=== PATIENT | female | born 1935 | race African-American/Black ===

== ENCOUNTER 2018-09-19 09:23 | Outpatient (CLI) | payer MEDICARE, OTHER | END 2018-09-19 09:24 | disposition home or self-care (01) | PROVIDERS: ATTEND Nurse Practitioner Family | DX: I10 Essential (primary) hypertension (principal); E78.5 Hyperlipidemia, unspecified; D64.9 Anemia, unspecified; Z91.81 History of falling ==

== ENCOUNTER 2018-10-03 10:32 | Outpatient (CLI) | payer MEDICARE, MEDICAID ==
--- NOTE | 2018-10-03 12:10 | ULT ---
RENAL ULTRASOUND: History: Renal insufficiency. FINDINGS: Real-time imaging of the right and left kidneys were performed. The right kidney measures 8.1, the le ft kidney 9 cm in size. The cortex of the kidneys appears to be of mild increased echogenicity but th e thickness is well preserved. There are no signs of cysts, mass or obstruction. The bladder is incom pletely distended at the time of this exam. IMPRESSION: Suggestion of some mild increased echogenicity to cortex of both kidneys suggesting some underlying m edial renal parenchymal disease. POS: [facility]
== END 2018-10-03 10:33 | disposition home or self-care (01) ==
LOC: BICULT 10:32
PROVIDERS: ATTEND Internal Medicine Nephrology
DX: N18.3 Chronic kidney disease, stage 3 (moderate) (principal)
CPT/HCPCS: 76770

== ENCOUNTER 2023-07-31 12:53 | Inpatient (IN) | payer MEDICARE, MEDICAID ==
[~2023-07-31 12:53] MED LIST: Iopamidol-370 76% 500 ML MDV (1 ML CHARGE) ONE
[2023-07-31 13:40] LABS: #Basophils 0.1 thou/uL (0.0-0.2); #Monocytes 0.9 thou/uL (0.11-0.59); #Neutrophils 10.7 thou/uL (1.40-6.50); %Basophils 0.3 % (0.0-1.0); %Eosinophils 0.2 % (0.0-10.0); %Lymphocytes 18.4 % (21.0-51.0); %Neutrophils 74.6 % (42.0-75.0); Hematocrit 36.3 % (36.0-47.0); Hemoglobin 11.7 g/dL (12.0-16.0); Mean Corpuscular HGB CONC 32.2 g/dL (32.0-36.0); Mean Corpuscular Volume 89.9 fl (78.0-98.0); Mean Platelet Volume 10.6 fL (7.4-10.4); Platelet Count 380 10x3/uL (130-400); RBC Distribution Width 15.3 % (11.5-14.5); Red Blood Cell (RBC) Count 4.04 mill/uL (4.20-5.40); White Blood Cell (WBC) Count 14.4 10x3/uL (4.8-10.8)
[2023-07-31] MEDS ORDERED: Sodium Chloride 0.9% 100 ML ONE (13:40)
[2023-07-31] MEDS ORDERED: cefTRIAXone (ROCEPHIN) 1 GM VIAL ONE (13:40)
[2023-07-31] MEDS ORDERED: Azithromycin 500 MG VIAL ONE (13:40)
[2023-07-31] MEDS ORDERED: methylPREDNISolone Sod Succ/PF 125 MG/2 ML VIAL ONE (13:45)
[2023-07-31 13:55] LABS: Prothrombin Time 13.9 sec (12.0-14.7)
[2023-07-31 13:57] LABS: PTT 26.2 sec (22.9-36.1)
[2023-07-31] MEDS ORDERED: Ipratropium/Albuterol 3 ML NEB ONE (14:00)
[2023-07-31 14:05] LABS: ALT (SGPT) Less than 7 U/L (8-55); AST (SGOT) 20 U/L (5-34); Albumin 3.3 g/dL (3.4-4.8); Alkaline Phosphatase 59 U/L (40-110); Anion Gap 17 mmol/L (10-20); BUN (Urea Nitrogen) 14 mg/dL (9.8-20.1); Bilirubin, Total 1.1 mg/dL (0.2-1.2); Calc. Creatinine Clearance 0 mL/min (70-130); Calcium 9.2 mg/dL (7.8-10.44); Carbon Dioxide 22 mmol/L (23-31); Chloride 102 mmol/L (98-107); Estimated GFR 75; Globulin 4.8 g/dL (2.4-3.5); Glucose 78 mg/dL (83-110); Magnesium 2.1 mg/dL (1.6-2.6); Potassium 3.2 mmol/L (3.5-5.1); Protein, Total 8.1 g/dL (5.8-8.1); Sodium 138 mmol/L (136-145)
[2023-07-31 14:06] LABS: D-Dimer Test 4.41 *mcg/mL (0.27-0.43)
[2023-07-31 14:07] LABS: Troponin I Less than 0.010 ng/mL (< 0.028)
[2023-07-31] MEDS ORDERED: Potassium Bicarbonate/Cit Ac 25 MEQ TAB ONE (15:32)
[2023-07-31 16:40] LABS: SARS-CoV-2 NAA Rapid Test Not Detected (NotDetected)
[2023-07-31] MEDS ORDERED: Acetaminophen 325 MG TAB PO PRN (17:10)
[2023-07-31] MEDS ORDERED: Acetaminophen 650 MG Suppository PR PRN (17:10)
[2023-07-31] MEDS ORDERED: Sodium Chloride 0.9% 1,000 ML IV SCH (17:15)
[2023-07-31] MEDS ORDERED: hydrALAZINE 20 MG/ML VIAL SLOW IVP PRN (17:46)
[2023-07-31] MEDS ORDERED: Famotidine/PF 20 mg/2ml Vial ONE (20:43)
[2023-07-31] MEDS: Famotidine/PF 20 mg/2ml Vial SLOW IVP SCH (20:55)
[2023-08-01 06:38] LABS: Bilirubin Moderate (Negative); Blood, Urine Large (Negative); Glucose, Urine (Dipstick) Negative (Negative); Ketone, Urine 15 mg/dL (Negative); Leukocyte Moderate (Negative); Nitrite Positive (Negative); Protein, Urine (Dipstick) Trace mg/dL (Neg-Trace); Specific Gravity, Urine 1.015 (1.005-1.030); pH, Urine 6.5 (5.0-9.0)
[2023-08-01 06:39] LABS: Clarity Turbid (Clear)
[2023-08-01 07:24] LABS: CAUTI Indications for Culture Fever or rigors; RBC/HPF 21-50 HPF (0-3); WBC/HPF 21-50 HPF (0-3)
[2023-08-01 07:25] LABS: Bacteria/HPF 4+ HPF (None Seen); Transitional Epithelial 0-3 HPF (None Seen)
[2023-08-01 07:28] LABS: Urine Culture Reflex Yes Yes
[2023-08-01] MEDS ORDERED: Famotidine/PF 20 mg/2ml Vial ONE (08:48)
[2023-08-01] MEDS: Sodium Chloride 0.9% 1,000 ML IV SCH ×2 (08:57→21:43)
[2023-08-01] MEDS: Famotidine/PF 20 mg/2ml Vial SLOW IVP SCH (08:58)
[2023-08-01] MEDS: Lisinopril 10 MG TAB PO SCH (09:57)
[2023-08-01] MEDS ORDERED: E-Z-HD 98% W/W 340GM BOT (x-ray ONLY) ONE (11:15)
[2023-08-01 13:44] LABS: #Monocytes 1.1 thou/uL (0.11-0.59); #Neutrophils 10.8 thou/uL (1.40-6.50); %Basophils 0.1 % (0.0-1.0); %Lymphocytes 15.1 % (21.0-51.0); %Monocytes 7.9 % (0.0-10.0); %Neutrophils 76.3 % (42.0-75.0); Hematocrit 33.9 % (36.0-47.0); Hemoglobin 10.7 g/dL (12.0-16.0); Mean Corpuscular HGB CONC 31.6 g/dL (32.0-36.0); Mean Corpuscular Hemoglobin 28.8 pg (27.0-31.0); Mean Corpuscular Volume 91.1 fl (78.0-98.0); Mean Platelet Volume 10.7 fL (7.4-10.4); Platelet Count 315 10x3/uL (130-400); RBC Distribution Width 15.7 % (11.5-14.5); Red Blood Cell (RBC) Count 3.72 mill/uL (4.20-5.40); White Blood Cell (WBC) Count 14.1 10x3/uL (4.8-10.8)
[2023-08-01] MEDS: cefTRIAXone\\ROCEPHIN 2 GM in Sodium Chloride 0.9% 100 ML IVPB SCH (14:08)
[2023-08-01 14:14] LABS: ALT (SGPT) Less than 7 U/L (8-55); AST (SGOT) 18 U/L (5-34); Albumin 2.7 g/dL (3.4-4.8); Alkaline Phosphatase 48 U/L (40-110); Anion Gap 18 mmol/L (10-20); BUN (Urea Nitrogen) 13 mg/dL (9.8-20.1); Bilirubin, Total 0.7 mg/dL (0.2-1.2); Calc. Creatinine Clearance 41 mL/min (70-130); Calcium 8.8 mg/dL (7.8-10.44); Carbon Dioxide 19 mmol/L (23-31); Chloride 110 mmol/L (98-107); Estimated GFR 84; Globulin 4.3 g/dL (2.4-3.5); Glucose 105 mg/dL (83-110); Potassium 3.7 mmol/L (3.5-5.1); Sodium 143 mmol/L (136-145)
[2023-08-01] MEDS: Azithromycin 500 MG in Sodium Chloride 0.9% 250 ML 250 ML IVPB SCH (14:54)
[2023-08-02] MEDS ORDERED: Famotidine/PF 20 mg/2ml Vial SLOW IVP SCH (09:00)
[2023-08-02] MEDS: Lisinopril 10 MG TAB PO SCH (12:11)
[2023-08-02 12:21] LABS: #Neutrophils 7.8 thou/uL (1.40-6.50); %Basophils 0.3 % (0.0-1.0); %Eosinophils 0.3 % (0.0-10.0); %Monocytes 8.8 % (0.0-10.0); Hematocrit 33.8 % (36.0-47.0); Hemoglobin 11.2 g/dL (12.0-16.0); Mean Corpuscular HGB CONC 33.1 g/dL (32.0-36.0); Mean Corpuscular Hemoglobin 28.9 pg (27.0-31.0); Mean Platelet Volume 11.1 fL (7.4-10.4); Platelet Count 269 10x3/uL (130-400); RBC Distribution Width 15.5 % (11.5-14.5); Red Blood Cell (RBC) Count 3.88 mill/uL (4.20-5.40); White Blood Cell (WBC) Count 11.8 10x3/uL (4.8-10.8)
[2023-08-02 12:24] LABS: Mean Corpuscular Volume 87.1 fl (78.0-98.0)
[2023-08-02 12:28] LABS: Anion Gap 13 mmol/L (10-20); BUN (Urea Nitrogen) 11 mg/dL (9.8-20.1); Calc. Creatinine Clearance 44 mL/min (70-130); Calcium 8.7 mg/dL (7.8-10.44); Carbon Dioxide 22 mmol/L (23-31); Chloride 107 mmol/L (98-107); Estimated GFR 86; Glucose 82 mg/dL (83-110); Potassium 3.4 mmol/L (3.5-5.1); Sodium 139 mmol/L (136-145)
[2023-08-02] MEDS ORDERED: Potassium Chloride 20 MEQ TAB PO SCH (13:00)
[2023-08-02] MEDS: cefTRIAXone\\ROCEPHIN 2 GM in Sodium Chloride 0.9% 100 ML IVPB SCH (13:10)
[2023-08-02] MEDS ORDERED: Amlodipine 5 MG TAB PO SCH (13:15)
[2023-08-02] MEDS: Azithromycin 500 MG in Sodium Chloride 0.9% 250 ML 250 ML IVPB SCH (15:38)
[2023-08-02] MEDS ORDERED: Potassium Bicarbonate/Cit Ac 20 MEQ TAB PO SCH (17:00)
[2023-08-02] MEDS: Sodium Chloride 0.9% 1,000 ML IV SCH (17:33)
[2023-08-02 20:52] VITALS: BMI 15.2
[2023-08-03] MEDS: Lisinopril 10 MG TAB PO SCH (07:45)
[2023-08-03] MEDS ORDERED: Amlodipine 5 MG TAB PO SCH (09:00)
[2023-08-03] MEDS ORDERED: Famotidine 20 MG TAB PO SCH (09:00)
[2023-08-03 09:44] LABS: #Basophils 0.1 thou/uL (0.0-0.2); #Eosinphils 0.1 thou/uL (0.0-0.7); #Neutrophils 6.9 thou/uL (1.40-6.50); %Basophils 0.5 % (0.0-1.0); %Eosinophils 0.6 % (0.0-10.0); %Lymphocytes 23.8 % (21.0-51.0); %Monocytes 9.2 % (0.0-10.0); %Neutrophils 65.3 % (42.0-75.0); Hematocrit 34.1 % (36.0-47.0); Hemoglobin 11.2 g/dL (12.0-16.0); Mean Corpuscular HGB CONC 32.8 g/dL (32.0-36.0); Mean Corpuscular Hemoglobin 29.5 pg (27.0-31.0); Mean Corpuscular Volume 89.7 fl (78.0-98.0); Mean Platelet Volume 10.5 fL (7.4-10.4); Platelet Count 300 10x3/uL (130-400); RBC Distribution Width 15.6 % (11.5-14.5); White Blood Cell (WBC) Count 10.5 10x3/uL (4.8-10.8)
[2023-08-03] MEDS ORDERED: Amoxicillin/Potassium Clav 875 MG TAB PO SCH (10:00)
[2023-08-03 10:08] LABS: Anion Gap 14 mmol/L (10-20); BUN (Urea Nitrogen) 9 mg/dL (9.8-20.1); Calc. Creatinine Clearance 44 mL/min (70-130); Calcium 8.8 mg/dL (7.8-10.44); Carbon Dioxide 26 mmol/L (23-31); Chloride 102 mmol/L (98-107); Estimated GFR 86; Glucose 95 mg/dL (83-110); Potassium 3.8 mmol/L (3.5-5.1); Sodium 138 mmol/L (136-145)
[2023-08-03 12:07] VITALS: BP 123/63
[2023-08-03 12:12] VITALS: TEMP 97.6
== END 2023-08-03 16:09 | disposition home or self-care (01) | DRG 871 ==
LOC: ERS 12:53 → ERHOLD 16:49 → 2NO 16:49
PROVIDERS: ADMIT Family Medicine; ATTEND Hospitalist
DX: A41.9 Sepsis, unspecified organism (principal); J18.9 Pneumonia, unspecified organism; J96.01 Acute respiratory failure with hypoxia; I69.951 Hemiplegia and hemiparesis following unspecified cerebrovascular disease affecting right dominant side; N39.0 Urinary tract infection, site not specified; J44.0 Chronic obstructive pulmonary disease with (acute) lower respiratory infection; E87.6 Hypokalemia; I73.9 Peripheral vascular disease, unspecified; Z79.899 Other long term (current) drug therapy; I10 Essential (primary) hypertension; E78.00 Pure hypercholesterolemia, unspecified; F03.90 Unspecified dementia, unspecified severity, without behavioral disturbance, psychotic disturbance, mood disturbance, and anxiety; M19.90 Unspecified osteoarthritis, unspecified site; Z98.890 Other specified postprocedural states; F32.A Depression, unspecified; Z87.891 Personal history of nicotine dependence; I25.10 Atherosclerotic heart disease of native coronary artery without angina pectoris; Z86.711 Personal history of pulmonary embolism; Z11.52 Encounter for screening for COVID-19; Z79.01 Long term (current) use of anticoagulants
CPT/HCPCS: 36415; 36416; 71045; 71275; 74230; 80048; 80053; 81001; 83605; 83735; 83880; 84145; 84484; 85025; 85379; 85610; 85730; 87040; 87086; 87149; 93005; 94640; 94760; 97139; J0456; J0696; J2930; J3490; J7050; J7620; Q9967; S0028

== ENCOUNTER 2023-08-14 12:59 | Inpatient (IN) | payer MEDICARE, MEDICAID ==
[2023-08-14 14:22] LABS: #Basophils 0.1 thou/uL (0.0-0.2); #Eosinphils 0.1 thou/uL (0.0-0.7); #Monocytes 0.6 thou/uL (0.11-0.59); #Neutrophils 4.4 thou/uL (1.40-6.50); %Eosinophils 0.8 % (0.0-10.0); %Monocytes 7.5 % (0.0-10.0); %Neutrophils 57.4 % (42.0-75.0); Hematocrit 38.6 % (36.0-47.0); Hemoglobin 12.1 g/dL (12.0-16.0); Mean Corpuscular HGB CONC 31.3 g/dL (32.0-36.0); Mean Corpuscular Hemoglobin 29.1 pg (27.0-31.0); Mean Corpuscular Volume 92.8 fl (78.0-98.0); Mean Platelet Volume 10.5 fL (7.4-10.4); Platelet Count 261 10x3/uL (130-400); RBC Distribution Width 16.4 % (11.5-14.5); Red Blood Cell (RBC) Count 4.16 mill/uL (4.20-5.40); White Blood Cell (WBC) Count 7.7 10x3/uL (4.8-10.8)
[2023-08-14 14:43] LABS: ALT (SGPT) 10 U/L (8-55); AST (SGOT) 27 U/L (5-34); Albumin 3.3 g/dL (3.4-4.8); Alkaline Phosphatase 58 U/L (40-110); Anion Gap 14 mmol/L (10-20); BUN (Urea Nitrogen) 14 mg/dL (9.8-20.1); Bilirubin, Total 0.7 mg/dL (0.2-1.2); Calc. Creatinine Clearance 0 mL/min (70-130); Calcium 9.3 mg/dL (7.8-10.44); Carbon Dioxide 24 mmol/L (23-31); Chloride 106 mmol/L (98-107); Estimated GFR 76; Globulin 4.7 g/dL (2.4-3.5); Glucose 75 mg/dL (83-110); Sodium 140 mmol/L (136-145)
[2023-08-14 14:45] LABS: Troponin I 0.018 ng/mL (< 0.028)
[2023-08-14 16:45] LABS: Bacteria/HPF None Seen HPF (None Seen); Bilirubin Negative (Negative); Blood, Urine 3+ (Negative); CAUTI Indications for Culture Alt mental st,lethar; Clarity Extra Turbid (Clear); Glucose, Urine (Dipstick) Normal (Negative); Ketone, Urine Negative (Negative); Leukocyte 500 Leu/uL (Negative); Nitrite Negative (Negative); Protein, Urine (Dipstick) 30 mg/dL (Neg-Trace); RBC/HPF Greater than 50 HPF (0-3); Specific Gravity, Urine 1.012 (1.002-1.036); WBC/HPF Greater than 50 HPF (0-3)
[2023-08-14 16:47] LABS: Urine Culture Reflex Yes Yes
[2023-08-14 17:37] LABS: SARS-CoV-2 NAA Rapid Test Not Detected (NotDetected)
[2023-08-14] MEDS ORDERED: Sodium Chloride 0.9% 100 ML ONE (18:21)
[2023-08-14] MEDS ORDERED: cefTRIAXone (ROCEPHIN) 2 GM VIAL ONE (18:21)
[2023-08-14] MEDS ORDERED: Azithromycin 500 MG VIAL ONE (20:09)
[2023-08-14] MEDS ORDERED: Amlodipine 5 MG TAB PO SCH (22:30)
[2023-08-14] MEDS ORDERED: Acetaminophen 325 MG TAB PO PRN (22:38)
[2023-08-14] MEDS ORDERED: Ondansetron ODT 4 MG TAB PO PRN (22:38)
[2023-08-15 05:46] LABS: #Basophils 0.1 thou/uL (0.0-0.2); #Eosinphils 0.1 thou/uL (0.0-0.7); #Neutrophils 4.3 thou/uL (1.40-6.50); %Monocytes 12.1 % (0.0-10.0); %Neutrophils 54.4 % (42.0-75.0); BUN (Urea Nitrogen) 12 mg/dL (9.8-20.1); Calc. Creatinine Clearance 0 mL/min (70-130); Calcium 8.7 mg/dL (7.8-10.44); Carbon Dioxide 21 mmol/L (23-31); Chloride 111 mmol/L (98-107); Estimated GFR 83; Glucose 66 mg/dL (83-110); Hematocrit 33.3 % (36.0-47.0); Hemoglobin 10.6 g/dL (12.0-16.0); Mean Corpuscular HGB CONC 31.8 g/dL (32.0-36.0); Mean Corpuscular Hemoglobin 28.3 pg (27.0-31.0); Mean Platelet Volume 10.7 fL (7.4-10.4); Platelet Count 253 10x3/uL (130-400); RBC Distribution Width 16.3 % (11.5-14.5); Red Blood Cell (RBC) Count 3.75 mill/uL (4.20-5.40); Sodium 142 mmol/L (136-145); White Blood Cell (WBC) Count 7.9 10x3/uL (4.8-10.8)
[2023-08-15 05:48] LABS: Mean Corpuscular Volume 88.8 fl (78.0-98.0)
[2023-08-15 07:07] LABS: Anion Gap 14 mmol/L (10-20)
[2023-08-15] MEDS: Lisinopril 10 MG TAB PO SCH (08:20)
[2023-08-15] MEDS ORDERED: Amoxicillin/Potassium Clav 875 MG TAB ONE (08:32)
[2023-08-15] MEDS ORDERED: cefTRIAXone (ROCEPHIN) 1 GM VIAL ONE (08:33)
[2023-08-15] MEDS ORDERED: Famotidine 20 MG TAB ONE (08:33)
[2023-08-15] MEDS: Amoxicillin/Potassium Clav 875 MG TAB PO SCH ×2 (08:49→20:51)
[2023-08-15] MEDS ORDERED: cefTRIAXone\\ROCEPHIN 1 GM in Sodium Chloride 0.9% 100 ML IVPB SCH (09:00)
[2023-08-15] MEDS ORDERED: Famotidine 20 MG TAB PO SCH (09:00)
[2023-08-15] MEDS ORDERED: LevoFLOXacin 750 mg/D5W 750 MG in Premix 1 BAG IVPB SCH (10:00)
[2023-08-15] MEDS ORDERED: LevoFLOXacin 750 mg/D5W 150 ml Premix Bag ONE (10:04)
[2023-08-15] MEDS ORDERED: Atorvastatin Calcium 10 MG TAB PO SCH (21:00)
[2023-08-15] MEDS ORDERED: traZODone HCl 50 MG TAB PO SCH (21:00)
[2023-08-16 07:19] LABS: #Basophils 0.1 thou/uL (0.0-0.2); #Eosinphils 0.1 thou/uL (0.0-0.7); #Monocytes 0.6 thou/uL (0.11-0.59); #Neutrophils 4.3 thou/uL (1.40-6.50); %Basophils 0.8 % (0.0-1.0); %Eosinophils 0.9 % (0.0-10.0); %Lymphocytes 22.7 % (21.0-51.0); %Monocytes 9.7 % (0.0-10.0); %Neutrophils 65.4 % (42.0-75.0); Hematocrit 31.1 % (36.0-47.0); Hemoglobin 10.2 g/dL (12.0-16.0); Mean Corpuscular HGB CONC 32.8 g/dL (32.0-36.0); Mean Corpuscular Hemoglobin 28.6 pg (27.0-31.0); Mean Corpuscular Volume 87.1 fl (78.0-98.0); Mean Platelet Volume 10.7 fL (7.4-10.4); Platelet Count 258 10x3/uL (130-400); RBC Distribution Width 15.9 % (11.5-14.5); Red Blood Cell (RBC) Count 3.57 mill/uL (4.20-5.40); White Blood Cell (WBC) Count 6.6 10x3/uL (4.8-10.8)
[2023-08-16 07:52] LABS: Anion Gap 11 mmol/L (10-20); BUN (Urea Nitrogen) 14 mg/dL (9.8-20.1); Calc. Creatinine Clearance 32 mL/min (70-130); Carbon Dioxide 25 mmol/L (23-31); Chloride 108 mmol/L (98-107); Estimated GFR 70; Glucose 83 mg/dL (83-110); Potassium 3.9 mmol/L (3.5-5.1); Sodium 140 mmol/L (136-145)
[2023-08-16] MEDS: Amoxicillin/Potassium Clav 875 MG TAB PO SCH (08:55)
[2023-08-16] MEDS: Lisinopril 10 MG TAB PO SCH (08:56)
[2023-08-16] MEDS ORDERED: Famotidine 20 MG TAB PO SCH (09:00)
[2023-08-16 12:15] VITALS: BP 121/74; TEMP 97.6
[2023-08-17] MEDS ORDERED: LevoFLOXacin 750 mg/D5W 750 MG in Premix 1 BAG IVPB SCH (10:00)
== END 2023-08-16 13:05 | disposition home health service (06) | DRG 189 ==
LOC: ERS 12:59 → ERHOLD 20:41 → T4-B 22:58
PROVIDERS: ADMIT Student in an Organized Health Care Education/Training Program; ATTEND Hospitalist
DX: J96.01 Acute respiratory failure with hypoxia (principal); I26.99 Other pulmonary embolism without acute cor pulmonale; I69.353 Hemiplegia and hemiparesis following cerebral infarction affecting right non-dominant side; N39.0 Urinary tract infection, site not specified; F03.C0 Unspecified dementia, severe, without behavioral disturbance, psychotic disturbance, mood disturbance, and anxiety; J44.9 Chronic obstructive pulmonary disease, unspecified; I25.10 Atherosclerotic heart disease of native coronary artery without angina pectoris; I10 Essential (primary) hypertension; B96.20 Unspecified Escherichia coli [E. coli] as the cause of diseases classified elsewhere; E78.00 Pure hypercholesterolemia, unspecified; Z79.899 Other long term (current) drug therapy; Z79.2 Long term (current) use of antibiotics; Z79.01 Long term (current) use of anticoagulants; Z98.891 History of uterine scar from previous surgery; Z11.52 Encounter for screening for COVID-19; Z87.891 Personal history of nicotine dependence
CPT/HCPCS: 36415; 36416; 71045; 71275; 80048; 80053; 81001; 83605; 83880; 84145; 84484; 85025; 87040; 87086; 94760; J0456; J0696; J1956; J3490

== ENCOUNTER 2023-09-07 22:44 | Inpatient (IN) | payer MEDICARE, MEDICAID ==
[2023-09-08 00:35] LABS: ALT (SGPT) 10 U/L (8-55); AST (SGOT) 28 U/L (5-34); Albumin 2.2 g/dL (3.4-4.8); Alkaline Phosphatase 45 U/L (40-110); Anion Gap 11 mmol/L (10-20); BUN (Urea Nitrogen) 26 mg/dL (9.8-20.1); Bilirubin, Total 0.4 mg/dL (0.2-1.2); Calc. Creatinine Clearance 0 mL/min (70-130); Calcium 8.2 mg/dL (7.8-10.44); Carbon Dioxide 25 mmol/L (23-31); Chloride 109 mmol/L (98-107); Estimated GFR 65; Globulin 3.4 g/dL (2.4-3.5); Glucose 92 mg/dL (83-110); Potassium 3.9 mmol/L (3.5-5.1); Protein, Total 5.6 g/dL (5.8-8.1); Sodium 141 mmol/L (136-145)
[2023-09-08 00:38] LABS: Troponin I Less than 0.010 ng/mL (< 0.028)
[2023-09-08 00:55] LABS: #Neutrophils 5.9 thou/uL (1.40-6.50); %Basophils 0.3 % (0.0-1.0); %Eosinophils 0.4 % (0.0-10.0); %Lymphocytes 30.4 % (21.0-51.0); %Monocytes 10.1 % (0.0-10.0); Hematocrit 31.8 % (36.0-47.0); Hemoglobin 10.3 g/dL (12.0-16.0); Mean Corpuscular HGB CONC 32.4 g/dL (32.0-36.0); Mean Corpuscular Hemoglobin 28.1 pg (27.0-31.0); Mean Corpuscular Volume 86.9 fl (78.0-98.0); Mean Platelet Volume 10.5 fL (7.4-10.4); Platelet Count 172 10x3/uL (130-400); RBC Distribution Width 16.7 % (11.5-14.5); Red Blood Cell (RBC) Count 3.66 mill/uL (4.20-5.40); White Blood Cell (WBC) Count 10.1 10x3/uL (4.8-10.8)
[2023-09-08] MEDS ORDERED: Sodium Chloride 0.9% 100 ML ONE (01:00)
[2023-09-08] MEDS ORDERED: cefTRIAXone (ROCEPHIN) 2 GM VIAL ONE (01:00)
[2023-09-08 02:13] LABS: Actual Bicarbonate (HCO3v) 22.4 mEq/L (22-28); Base Excess 0.7 mEq/L (-2.0 to +3.0); Chloride (VBG) 109 mmol/L (98-106); Hematocrit-VBG 32 % (36.0-47.0); Hemoglobin (Hb) 10.9 g/dL (11.7-16.1); Potassium (VBG) 4.19 mmol/L (3.70-5.30); Sodium 140 mmol/L (133-146); pH (venous) 7.536 (7.32-7.43)
[2023-09-08] MEDS ORDERED: Acetaminophen 325 MG TAB PO PRN ×2 (02:41→04:15)
[2023-09-08] MEDS ORDERED: Ondansetron PF 4 MG/2 ML Vial IVP PRN (02:41)
[2023-09-08] MEDS ORDERED: Ondansetron ODT 4 MG TAB PO PRN (02:41)
[2023-09-08] MEDS ORDERED: Acetaminophen 650 MG Suppository PR PRN ×2 (02:41→04:15)
[2023-09-08] MEDS ORDERED: Vancomycin 1 GM/200 ML (FROZEN) BAG ONE (03:26)
[2023-09-08] MEDS ORDERED: Albuterol 200 PUFF (6.7GM INHALER) INH PRN (04:15)
[2023-09-08] MEDS ORDERED: Benzonatate 100 MG CAP PO PRN (04:15)
[2023-09-08 06:44] VITALS: BMI 14.4
[2023-09-08] MEDS ORDERED: Cefepime 2 GM in Sodium Chloride 0.9% 100 ML IVPB SCH (09:00)
[2023-09-08] MEDS ORDERED: Vancomycin (BATCH) 1.25 GM in Premix 1 BAG IVPB SCH (09:00)
[2023-09-08] MEDS: Zinc Sulfate 220 MG CAP PO SCH (11:00)
[2023-09-08] MEDS: Ascorbic Acid 500 mg Chewable Tablet PO SCH (11:00)
[2023-09-08] MEDS: Cholecalciferol (Vitamin D3) 400 UNITS TAB PO SCH (11:00)
[2023-09-08] MEDS: Enoxaparin 30 MG (0.3 mL) SYRINGE SC SCH (12:04)
[2023-09-08] MEDS: hydrALAZINE 20 MG/ML VIAL SLOW IVP PRN (12:05)
[2023-09-08] MEDS ORDERED: hydrALAZINE 20 MG/ML VIAL SLOW IVP PRN (12:09)
[2023-09-08] MEDS: Dexamethasone 4 mg/ml Vial SLOW IVP SCH (12:14)
[2023-09-08] MEDS ORDERED: D5 1/2 NS w/20 mEq KCL 1,000 ML IV SCH (12:15)
[2023-09-08] MEDS ORDERED: Piperacillin/Tazobactam 3.375 GM in Sodium Chloride 0.9% 100 ML IVPB SCH (12:15)
[2023-09-08] MEDS: D5 1/2 NS w/20 mEq KCL 1,000 ML IV SCH (13:02)
[2023-09-08] MEDS: Piperacillin/Tazobactam 3.375 GM in Sodium Chloride 0.9% 100 ML IVPB SCH ×2 (13:03→22:54)
[2023-09-08] MEDS: Sodium Chloride 0.9% 250 ML 250 ML IV SCH (16:35)
[2023-09-08 18:59] LABS: #Basophils 0.1 thou/uL (0.0-0.2); #Monocytes 0.4 thou/uL (0.11-0.59); #Neutrophils 10.2 thou/uL (1.40-6.50); %Basophils 0.4 % (0.0-1.0); %Lymphocytes 14.4 % (21.0-51.0); %Neutrophils 81.5 % (42.0-75.0); Hematocrit 32.6 % (36.0-47.0); Hemoglobin 10.9 g/dL (12.0-16.0); Mean Corpuscular HGB CONC 33.4 g/dL (32.0-36.0); Mean Corpuscular Hemoglobin 28.7 pg (27.0-31.0); Mean Corpuscular Volume 85.8 fl (78.0-98.0); Mean Platelet Volume 10.7 fL (7.4-10.4); Platelet Count 207 10x3/uL (130-400); RBC Distribution Width 16.7 % (11.5-14.5); White Blood Cell (WBC) Count 12.5 10x3/uL (4.8-10.8)
[2023-09-08 19:24] LABS: Anion Gap 14 mmol/L (10-20); BUN (Urea Nitrogen) 20 mg/dL (9.8-20.1); Calc. Creatinine Clearance 31 mL/min (70-130); Calcium 8.5 mg/dL (7.8-10.44); Carbon Dioxide 20 mmol/L (23-31); Chloride 109 mmol/L (98-107); Estimated GFR 70; Glucose 171 mg/dL (83-110); Potassium 3.9 mmol/L (3.5-5.1); Sodium 139 mmol/L (136-145)
[2023-09-08] MEDS ORDERED: Lisinopril 5 MG TAB PO SCH ×2 (21:00)
[2023-09-08] MEDS ORDERED: Amlodipine 5 MG TAB PO SCH ×2 (21:00)
[2023-09-08 21:14] LABS: SARS-CoV-2 N1 Positive; SARS-CoV-2 N2 Positive; SARS-CoV-2 RNAse P1 Positive
[2023-09-08] MEDS: REMDESIVIR 200 MG in Sodium Chloride 0.9% 250 ML 210 ML IV SCH (21:18)
[2023-09-08] MEDS: Pantoprazole 40 MG VIAL IVP SCH (22:55)
[2023-09-08] MEDS: Atorvastatin Calcium 10 MG TAB PO SCH (22:55)
[2023-09-09 07:26] LABS: Phosphorus 2.3 mg/dL (2.3-4.7)
[2023-09-09 09:01] LABS: #Monocytes 0.5 thou/uL (0.11-0.59); #Neutrophils 7.1 thou/uL (1.40-6.50); %Basophils 0.2 % (0.0-1.0); %Lymphocytes 23.3 % (21.0-51.0); %Monocytes 5.1 % (0.0-10.0); %Neutrophils 70.4 % (42.0-75.0); Hematocrit 29.2 % (36.0-47.0); Hemoglobin 9.1 g/dL (12.0-16.0); Mean Corpuscular HGB CONC 31.2 g/dL (32.0-36.0); Mean Corpuscular Hemoglobin 28.9 pg (27.0-31.0); Mean Platelet Volume 11.4 fL (7.4-10.4); Platelet Count 192 10x3/uL (130-400); RBC Distribution Width 17.2 % (11.5-14.5); Red Blood Cell (RBC) Count 3.15 mill/uL (4.20-5.40); White Blood Cell (WBC) Count 10.1 10x3/uL (4.8-10.8)
[2023-09-09 09:12] LABS: Mean Corpuscular Volume 92.7 fl (78.0-98.0)
[2023-09-09] MEDS: Amlodipine 5 MG TAB PO SCH (09:20)
[2023-09-09 09:33] LABS: ALT (SGPT) 8 U/L (8-55); AST (SGOT) 23 U/L (5-34); Albumin 2.3 g/dL (3.4-4.8); Alkaline Phosphatase 46 U/L (40-110); Anion Gap 13 mmol/L (10-20); BUN (Urea Nitrogen) 19 mg/dL (9.8-20.1); Bilirubin, Total 0.3 mg/dL (0.2-1.2); Calc. Creatinine Clearance 31 mL/min (70-130); Calcium 8.3 mg/dL (7.8-10.44); Carbon Dioxide 20 mmol/L (23-31); Chloride 110 mmol/L (98-107); Estimated GFR 69; Globulin 3.8 g/dL (2.4-3.5); Glucose 145 mg/dL (83-110); Magnesium 1.9 mg/dL (1.6-2.6); Potassium 3.9 mmol/L (3.5-5.1); Protein, Total 6.1 g/dL (5.8-8.1); Sodium 139 mmol/L (136-145)
[2023-09-09] MEDS: FLU VACC QS2023-24(6MOS UP)/PF 60 MCG/0.5 ML SYRINGE IM ONE (10:58)
[2023-09-09] MEDS: REMDESIVIR 100 MG in Sodium Chloride 0.9% 250 ML 230 ML IV SCH (13:14)
[2023-09-10 08:28] VITALS: TEMP 98.6
[2023-09-10 11:23] VITALS: BP 118/67
== END 2023-09-10 13:08 | disposition home or self-care (01) | DRG 177 ==
LOC: ERS 22:44 → 2NO 09-08 06:17
PROVIDERS: ADMIT Student in an Organized Health Care Education/Training Program; ATTEND Hospitalist
PROC: 8E0ZXY6 Isolation (ICD-10-PCS; principal; 2023-09-08)
PROC: 3E0333Z Introduction of Anti-inflammatory into Peripheral Vein, Percutaneous Approach (ICD-10-PCS; 2023-09-08)
PROC: XW033E5 Introduction of Remdesivir Anti-infective into Peripheral Vein, Percutaneous Approach, New Technology Group 5 (ICD-10-PCS; 2023-09-08)
DX: U07.1 COVID-19 (principal); J12.82 Pneumonia due to coronavirus disease 2019; J96.01 Acute respiratory failure with hypoxia; L89.154 Pressure ulcer of sacral region, stage 4; J69.0 Pneumonitis due to inhalation of food and vomit; I69.359 Hemiplegia and hemiparesis following cerebral infarction affecting unspecified side; E44.0 Moderate protein-calorie malnutrition; Z68.1 Body mass index [BMI] 19.9 or less, adult; I27.82 Chronic pulmonary embolism; I10 Essential (primary) hypertension; I73.9 Peripheral vascular disease, unspecified; E78.5 Hyperlipidemia, unspecified; F03.90 Unspecified dementia, unspecified severity, without behavioral disturbance, psychotic disturbance, mood disturbance, and anxiety; J44.9 Chronic obstructive pulmonary disease, unspecified; D64.9 Anemia, unspecified; R53.81 Other malaise; Z79.899 Other long term (current) drug therapy; Z87.891 Personal history of nicotine dependence
CPT/HCPCS: 36415; 71045; 71275; 80053; 82805; 83605; 83735; 83880; 84100; 84484; 85025; 86140; 87040; 87635; 93005; 96374; 96375; 97139; C9113; J0248; J0360; J0696; J1100; J1650; J2543; J3370-JW; J3480; J3490; J7050; Q9967